=== PATIENT | male | born 1950 | race Caucasian/White ===

== ENCOUNTER 2017-09-17 17:56 | Emergency (ER) | payer MEDICARE ==
[2017-09-17] MEDS: IV NORMAL SALINE 1000ML BAG 1,000 ML IV (18:35)
[2017-09-17 18:38] LABS: BILIRUBIN,URINE NEGATIVE (NEG); GLUCOSE,URINE NEGATIVE (NEG); NITRITE,URINE NEGATIVE (NEG); PH,URINE 7.5; PROTEIN,URINE NEGATIVE (NEG-TRACE)
[2017-09-17] MEDS: ONDANSETRON PF 4 MG/2 ML VIAL. IV (18:41)
[2017-09-17] MEDS: KETOROLAC 30 MG/ML INJ. IV (18:44)
[2017-09-17 18:48] LABS: BACTERIA,URINE 0 /HPF (0-FEW); RBC,URINE 20-40 /HPF (0-2); WBC,URINE 0 /HPF (0-4)
[2017-09-17 18:54] LABS: ADD MAN DIFF? NO
[2017-09-17 18:56] LABS: BASO # 0.1 x10^3/uL (0.0-0.2); BASO % 1 % (0-3); EOS % 1 % (0-3); HEMOGLOBIN 16.5 g/dL (13.0-17.5); LYMPH # 1.1 x10^3/uL (1.0-4.8); LYMPH % 11 % (24-48); MEAN CORPUSCULAR HEMOGLOBIN 29 pg (25-35); MEAN CORPUSCULAR HGB CONC 33 g/dL (31-37); MEAN CORPUSCULAR VOLUME 89 fL (79-100); MONO % 7 % (0-9); NEUT % 80 % (31-73); PLATELET COUNT 207 x10^3/uL (140-400); RED BLOOD COUNT 5.62 x10^6/uL (4.30-5.70); RED CELL DISTRIBUTION WIDTH 13.2 % (11.5-14.5); WHITE BLOOD COUNT 10.6 x10^3/uL (4.0-11.0)
[2017-09-17 19:03] LABS: ANION GAP 11 (6-14); BLOOD UREA NITROGEN 17 mg/dL (8-26); BUN/CREATININE RATIO 15 (6-20); CALCIUM 8.6 mg/dL (8.5-10.1); CARBON DIOXIDE 26 mmol/L (21-32); CHLORIDE 103 mmol/L (98-107); CREATININE 1.1 mg/dL (0.7-1.3); GFR 67.2; GLUCOSE 121 mg/dL (70-99); POTASSIUM 4.3 mmol/L (3.5-5.1); SODIUM 140 mmol/L (136-145)
[2017-09-17 19:11] LABS: ALBUMIN 3.6 g/dL (3.4-5.0); ALK PHOS 58 U/L (46-116); ALT (SGPT) 35 U/L (16-63); AST (SGOT) 14 U/L (15-37); TOTAL BILIRUBIN 0.8 mg/dL (0.2-1.0); TOTAL PROTEIN 7.1 g/dL (6.4-8.2)
[2017-09-17] MEDS: metroNIDAZOLE 500 MG TABLET PO (22:04)
[2017-09-17] MEDS: CIPROFLOXACIN HCL 250 MG TABLET. PO (22:04)
== END 2017-09-17 22:00 | disposition home or self-care (01) ==
LOC: ER 17:56
DX: K57.30 Diverticulosis of large intestine without perforation or abscess without bleeding (principal); R31.29 Other microscopic hematuria; R91.1 Solitary pulmonary nodule; K52.9 Noninfective gastroenteritis and colitis, unspecified; K21.9 Gastro-esophageal reflux disease without esophagitis; I10 Essential (primary) hypertension
CPT/HCPCS: 36415; 74176; 80053; 81001; 83690; 85025; 96361; 96374; 96375; 99285-25; J1885; J2405; J7030

== ENCOUNTER → 2018-03-06 | Outpatient (CLI) | payer MEDICARE ==
[2018-03-06] MEDS: IOHEXOL 300 MG/ML 100ML VIAL. IV (12:52)
[2018-03-06 13:41] LABS: ISTAT CREATININE 1.1 mg/dL (0.7-1.3)
== END | disposition home or self-care (01) ==
LOC: KCIC CT 12:25
DX: R91.1 Solitary pulmonary nodule (principal); I10 Essential (primary) hypertension; K21.9 Gastro-esophageal reflux disease without esophagitis
CPT/HCPCS: 71260; 82565; Q9967